=== PATIENT | female | born 1965 | race Caucasian/White ===

== ENCOUNTER 2020-06-09 22:04 | Inpatient (IN) ==
[2020-06-09] MEDS ORDERED: NS 0.9% 1000 ml BAG 1,000 ML IV ONE (22:15)
[2020-06-09 22:46] LABS: ABS Basophils 0.1 10^3/ul (0-0.2); ABS Eosinophils 0.2 10^3/ul (0-0.6); ABS Lymphocytes 1.7 10^3/ul (1.0-4.8); ABS Monocytes 1.1 10^3/ul (0-0.8); ABS Neutrophils 13.5 10^3/ul (1.5-7.7); Eosinophil % 1.2 %; Hematocrit 45 % (35-47); Hemoglobin 15.8 g/dL (12.0-16.0); Lymphocyte % 10.4 %; Mean Corpuscular HGB Conc 35 g/dL (31-36); Mean Corpuscular Hemoglobin 30 pg (27-31); Mean Corpuscular Volume 86 fL (80-97); Mean Platelet Volume 10.5 fL (7.4-10.4); Platelet Count 217 10^3/uL (150-450); Red Cell Distribution Width 15 % (10-15); White Blood Count 16.8 10^3/uL (3.5-10.8)
[2020-06-09 22:51] LABS: Urine Appearance Cloudy; Urine Bilirubin Negative (Negative); Urine Blood Negative (Negative); Urine Color Yellow; Urine Glucose Negative (Negative); Urine Ketones Negative (Negative); Urine Nitrite Negative (Negative); Urine Protein Negative (Negative); Urine Specific Gravity 1.006 (1.010-1.030); Urine Urobilinogen Negative (Negative)
[2020-06-09 23:03] LABS: Potassium 4.1 mmol/L (3.5-5.0)
[2020-06-09 23:04] LABS: Urine Bacteria 1+ (Absent); Urine Red Blood Cell Trace(0-2/hpf) (Absent); Urine Squamous Epithelial Cell Present (Absent); Urine White Blood Cell 1+(6-10/hpf) (Absent)
[2020-06-09 23:04] LABS: Albumin 3.9 g/dL (3.2-5.2); Albumin/Globulin Ratio 1.1 (1-3); EGFR African American 78.6 (>60); EGFR Non-African American 64.9 (>60); Globulin 3.5 g/dL (2-4); HDL Cholesterol 34.9 mg/dL; Total Bilirubin 0.4 mg/dL (0.2-1.0); Total Protein 7.4 g/dL (6.4-8.9)
[2020-06-09 23:06] LABS: Activated Partial Thrombo Time 23.8 seconds (26.0-38.0); INR 1.1 (0.82-1.09)
[2020-06-09] MEDS ORDERED: Iodixanol (CONTRAST) 320 MG/ML 100 ML SDV IV ONE (23:39)
[2020-06-10] MEDS ORDERED: cefTRIAXone 1 gm/50 mL NS BAG 1 GM/50 ML BAG IV ONE (00:16)
[2020-06-10] MEDS ORDERED: Albuterol HFA INHALER 8 gm MDI INH PRN (00:56)
[2020-06-10] MEDS ORDERED: Mometasone 220 MCG MDI INH SCH (03:00)
[2020-06-10 06:25] LABS: ABS Basophils 0.1 10^3/ul (0-0.2); ABS Eosinophils 0.4 10^3/ul (0-0.6); ABS Monocytes 0.8 10^3/ul (0-0.8); ABS Neutrophils 9.8 10^3/ul (1.5-7.7); Hematocrit 42 % (35-47); Hemoglobin 14.3 g/dL (12.0-16.0); Mean Corpuscular HGB Conc 34 g/dL (31-36); Mean Corpuscular Hemoglobin 30 pg (27-31); Mean Corpuscular Volume 88 fL (80-97); Mean Platelet Volume 11.1 fL (7.4-10.4); Platelet Count 198 10^3/uL (150-450); Red Blood Count 4.82 10^6 /uL (3.70-4.87); Red Cell Distribution Width 15 % (10-15); White Blood Count 13.1 10^3/uL (3.5-10.8)
[2020-06-10 06:41] LABS: BUN/Creatinine Ratio 8.8 (8-20); C Reactive Protein 4.99 mg/L (<8.01); Calcium 8.8 mg/dL (8.6-10.3); EGFR African American 91.1 (>60); EGFR Non-African American 75.3 (>60)
[2020-06-10] MEDS ORDERED: Perflutren Lipid Microsphere 3 ML VIAL ONE (10:39)
[2020-06-10 12:14] VITALS: BP 127/75
[2020-06-11] MEDS ORDERED: cefTRIAXone 1 gm/50 mL NS BAG 1 GM/50 ML BAG IVPB SCH (02:00)
[2020-06-15 14:37] LABS: Phospholipid Ab IgG < 9.4 GPL; Phospholipid Ab IgM, S < 9.4 MPL
== END 2020-06-10 17:45 | disposition home or self-care (01) | DRG 45 ==
LOC: ED 22:04 → MEDTELE 22:04
PROVIDERS: ADMIT Internal Medicine; ATTEND Internal Medicine